=== PATIENT | male | born 1945 | race Caucasian/White ===

== ENCOUNTER 2025-08-19 10:33 | Outpatient (CLI) | payer BC, SELFPAY ==
[2025-08-19 12:07] LABS: Alanine Aminotransferase 20 U/L (0-41); Albumin Level 4.3 g/dL (3.5-5.2); Alkaline Phosphatase 60 U/L (40-130); Aspartate Amino Transferase 32 U/L (0-40); Globulin 3.2 g/dL (1.3-4.6); Total Protein 7.5 g/dL (6.6-8.7)
== END 2025-08-19 10:34 | disposition home or self-care (01) ==
DX: Z51.81 Encounter for therapeutic drug level monitoring (principal)
CPT/HCPCS: 36415; 80076

== ENCOUNTER 2025-09-16 09:58 | Outpatient (CLI) | payer BC, SELFPAY ==
[2025-09-16 11:15] LABS: Alanine Aminotransferase 14 U/L (0-41); Albumin Level 4.2 g/dL (3.5-5.2); Alkaline Phosphatase 62 U/L (40-130); Aspartate Amino Transferase 21 U/L (0-40); Globulin 3.1 g/dL (1.3-4.6); Total Protein 7.3 g/dL (6.6-8.7)
== END 2025-09-16 09:59 | disposition home or self-care (01) ==
DX: Z51.81 Encounter for therapeutic drug level monitoring (principal)
CPT/HCPCS: 36415; 80076